=== PATIENT | female | born 1940 | race Caucasian/White ===

== ENCOUNTER 2016-07-21 07:24 | Emergency (ER) | payer MEDICARE ==
[~2016-07-21] VITALS: Ht 167.6 cm; Wt 67.1 kg
[~2016-07-21 07:24] MED LIST: ASPI-862 PO; DIGO125T79 PO; METO50TA7 PO
--- NOTE | 2016-07-21 07:24 | NUR ---
Patient noted to arrive with albuterol treatment in field, at bedside states she has been short of breath since this morning and the albuterol treatment at home has been ineffective. per , pt is normally on 4L [place] but he put [place] 10L and her oxygen saturation couldnt get higher than 90%. states she has 3/10 body aches. will continue to monitor
--- NOTE | 2016-07-21 07:24 | NUR ---
Arrived via [facility] for SOB, resp 28 with accessory muscle use. She has been on Cipro for Tx of some unclear pulmonary process since 07/19/16. Placed in room 1 . Placed on cattle rancher, blood pressure machine and pulse oximeter. To gown for exam. Side rails up. Report given to Emily ARAYA.
[2016-07-21 07:25] VITALS: BP 161/74; PULSE 116; RESP 28; TEMP 97.8; O2SAT 90
--- NOTE | 2016-07-21 07:33 | NUR ---
ER Dr. Newton at bedside examining patient.
--- NOTE | 2016-07-21 07:34 | NUR ---
James maldonado in ED - 07/21/16 at 0734 by AVI MILENA Clay at bedside examining patient.
--- NOTE | 2016-07-21 07:47 | NUR ---
RT placed pt on BIPAP machine
[2016-07-21] MEDS ORDERED: LevALBUTEROL HCL 1.25 MG/0.5 ML *CONC.* VIAL.NEB (XOPENEX CONC.) INH ONE ×4 (08:00→11:15)
[2016-07-21] MEDS ORDERED: ASPIRIN 81 MG TAB.CHEW PO ONE (08:00)
[2016-07-21] MEDS ORDERED: methylPREDNISolone SOD SUCC/PF 62.5 MG/ML VIAL IVP ONE (08:00)
[2016-07-21] MEDS ORDERED: IPRATROPIUM BROM 0.5 MG/2.5 ML VIAL.NEB (ATROVENT) IH ONE (08:00)
[2016-07-21] MEDS ORDERED: cefTRIAXone 1 GM IVPB PREMIX 50 ML IV ONE (08:00)
[2016-07-21] MEDS ORDERED: IPRATROPIUM BROM 0.5 MG/2.5 ML VIAL.NEB (ATROVENT) INH ONE (08:03)
--- NOTE | 2016-07-21 08:05 | NUR ---
lab at bedside for blood draw
[2016-07-21 08:15] LABS: BASOPHILS # (AUTO) 0.1 K/uL (0.0-0.2); BASOPHILS % (AUTO) 1.1 % (0.0-2.0); HEMATOCRIT 39.2 % (36-48); HEMOGLOBIN 13.1 g/dL (12.0-16.0); LYMPHOCYTES # (AUTO) 1.6 K/uL (1.0-5.5); MEAN CORPUSCULAR HEMOGLOBIN 32 pg (27-31); MEAN CORPUSCULAR HGB CONC 34 % (32-36); MEAN CORPUSCULAR VOLUME 94 fL (79.0-98.0); MONOCYTES # (AUTO) 0.9 K/uL (0.0-1.0); MONOCYTES % (AUTO) 7.6 % (1.7-9.3); NEUTROPHILS # (AUTO) 8.8 K/uL (1.8-7.7); NEUTROPHILS % (AUTO) 77.3 % (40.0-70.0); PLATELET COUNT (AUTO) 186 K/uL (130-430); RED BLOOD CELL COUNT(AUTO) 4.16 MIL/uL (4.2-6.2); RED CELL DISTRIBUTION WIDTH 12.7 % (9.0-15.0); WHITE BLOOD COUNT (AUTO) 11.4 K/uL (4.8-10.8)
[2016-07-21 08:20] LABS: ANION GAP 6 (5-15); CHLORIDE 101 mmol/L (98-107); CREATININE 1.04 mg/dL (0.55-1.30); GLUCOSE 148 mg/dL (70-99); POTASSIUM 3.3 mmol/L (3.5-5.1); SODIUM SERUM 144 mmol/L (136-145); UREA NITROGEN, BLOOD 24 mg/dL (8-21)
--- NOTE | 2016-07-21 08:23 | NUR ---
pt placed on bedpan.
[2016-07-21 08:24] LABS: INR 0.9 (0.8-1.2); PROTHROMBIN TIME 9.9 SECS (9.5-12.5)
[2016-07-21 08:25] LABS: ALANINE AMINOTRANSFERASE 23 U/L (12-78); ALBUMIN 4.2 g/dL (3.4-4.8); ASPARTATE AMINOTRANSFERASE 23 U/L (10-37); TOTAL BILIRUBIN 0.2 mg/dL (0.0-1.0); TOTAL PROTEIN, SERUM 8.1 g/dL (6.4-8.3)
[2016-07-21 08:32] LABS: BILIRUBIN,URINE NEGATIVE (NEGATIVE); CLARITY/URINE SL HAZY (CLEAR); COLOR,URINE YELLOW (YELLOW); GLUCOSE,URINE NEGATIVE (NEGATIVE); KETONES,URINE NEGATIVE (NEGATIVE); LEUKOCYTE ESTERASE ,URINE 2+ (NEGATIVE); NITRITE, URINE NEGATIVE (NEGATIVE); PH,URINE 5.5 (5.0-8.0); PROTEIN URINE NEGATIVE (NEGATIVE); UROBILINOGEN,URINE 0.2 (0.2-1.0)
[2016-07-21 08:33] LABS: BLOOD, URINE TRACE (NEGATIVE)
[2016-07-21 08:40] LABS: BACTERIA,URINE FEW /HPF (None Seen); WBC,URINE 20-50 /HPF (0-3)
[2016-07-21 08:41] LABS: MUCUS,URINE None Seen /LPF (None Seen)
[2016-07-21] MEDS ORDERED: VITD2000 PO (08:47)
[2016-07-21] MEDS ORDERED: ASPI-1063 PO (08:47)
[2016-07-21] MEDS ORDERED: FLUT1DIS3 INH (08:47)
[2016-07-21] MEDS ORDERED: PRED10TA PO (08:47)
[2016-07-21] MEDS ORDERED: MIDO5TAB20 PO (08:47)
[2016-07-21] MEDS ORDERED: SPIRIVA INH (08:47)
[2016-07-21] MEDS ORDERED: DILT30TA36 PO (08:47)
[2016-07-21] MEDS ORDERED: ACET500C43 PO (08:47)
[2016-07-21] MEDS ORDERED: ALBU2.5V7 INH (08:47)
[2016-07-21] MEDS ORDERED: FURO40TA5 PO (08:47)
--- NOTE | 2016-07-21 08:47 | NUR ---
Medication reconciliation completed with information provided by patient. Any prior medication reconciliation on file was reviewed and corrected.
[2016-07-21] MEDS ORDERED: POTASSIUM CHLORIDE 20 MEQ TAB.PRT.SR PO ONE (09:15)
--- NOTE | 2016-07-21 09:37 | NUR ---
Patient sitting on bed in no acute distress, more calm, and no accessory muscle use noted. Patient appears less anxious and states she is feeling alot better thean when she first came in.
[2016-07-21 10:00] LABS: ABG TOTAL HEMOGLOBIN 13.8 G/dL (12.0-18.0); BLOOD GAS BASE EXCESS 4.7 mmol/L (-3.0-3.0); BLOOD GAS COHb% 0.4 % (0.5-1.5); BLOOD GAS HHB 6.9 % (0.0-6.0); BLOOD GAS PH 7.318 (7.350-7.450); BLOOD O2Hb% 92.3 % (94.0-97.0)
--- NOTE | 2016-07-21 11:00 | NUR ---
Patient resting quietly. No acute distress noted.
[2016-07-21 12:10] LABS: BLOOD GAS PH 7.326 (7.350-7.450)
[2016-07-21 12:11] LABS: ABG TOTAL HEMOGLOBIN 13.7 G/dL (12.0-18.0); BLOOD GAS BASE EXCESS 5.2 mmol/L (-3.0-3.0); BLOOD GAS COHb% 0.8 % (0.5-1.5); BLOOD GAS HHB 8.1 % (0.0-6.0); BLOOD O2Hb% 90.6 % (94.0-97.0)
--- NOTE | 2016-07-21 12:34 | NUR ---
Patient sitting on bed speaking to family at bedside, denies any complaints at this time
[2016-07-21] MEDS ORDERED: DILTIAZEM HCL 30 MG TABLET PO ONE (14:00)
[2016-07-21] MEDS ORDERED: METOPROLOL TARTRATE 25 MG TABLET PO ONE (14:00)
[2016-07-21] MEDS ORDERED: DIGOXIN 0.125 MG TABLET PO ONE (14:00)
--- NOTE | 2016-07-21 14:10 | NUR ---
Patient insists to ambulate to restroom, without bipap or oxygen, minimal assist and noted to ambulate without difficulty. will continue to monitor
[2016-07-21 14:32] VITALS: BP 135/79; PULSE 100; RESP 20; TEMP 97.8; O2SAT 96
--- NOTE | 2016-07-21 14:33 | NUR ---
Patient to be transferred to [facility]. Is being transferred due to higher level of care. Receiving facility has accepting physician and available space. ER physician has signed transfer form. Patient or responsible libertarian has agreed to transfer and signed form. Patient belongings inventoried and will be sent with patient. Copy of nursing notes, lab reports, EKG, Physicians Orders and X-rays to be sent with patient. Report called to ARNAUD at receiving facility. Receiving physician is TONI. [facility] service has been called for transfer. ETA is NOW.
== END 2016-07-21 14:30 | disposition short-term general hospital (02) ==
LOC: SED 07:24
DX: R06.02 Shortness of breath (principal); J44.9 Chronic obstructive pulmonary disease, unspecified; I48.91 Unspecified atrial fibrillation
CPT/HCPCS: 36415; 71010; 80053; 80162; 81000; 82803; 83605; 83880; 84484; 85025; 85610; 85730; 87040; 87086; 93005; 94640; 94660; 96365; 96375; 99285; J0696; J2930